=== PATIENT | male | born 1990 | race Caucasian/White ===

== ENCOUNTER 2018-02-19 20:41 | Emergency (ER) | payer SELFPAY ==
[~2018-02-19] VITALS: Ht 177.8 cm; Wt 59.0 kg
[2018-02-19 21:00] VITALS: BP 122/78
--- NOTE | 2018-02-19 21:20 | Emergency Room Report ---
History of Present Illness General Chief Complaint: General Complaint Source: EMS Present Illness HPI Is approximately 27-year-old male came in as a Rich Perales. He was acting aggressively and was combative security police. He was restrained and given Versed by EMS. Unable to any other history from him because he is now sedated. The distal fine a book about full of needles. Patient unable to give any other history. Is no trauma. Allergies: Coded Allergies: UNABLE TO ASSESS (Unverified , 02/19/18) Patient History Past Medical History: see triage record, old chart reviewed Past Surgical History: unable to obtain Pertinent Family History: unable to obtain Immunizations: other Reviewed Nursing Documentation: PMH: Agreed; PSxH: Agreed Nursing Documentation-PMH Past Medical History Deferred: Pt Cognitively Impaired Review of Systems All Other Systems: limited - Secondary to patient condition Physical Exam Vital Signs Date Time Temp Pulse Resp B/P (MAP) Pulse Ox O2 Delivery O2 Flow Rate FiO2 02/19/18 20:42 98.0 98 18 116/78 98 Room Air 98.1 Sp02 EP Interpretation: reviewed, normal General Appearance: well appearing, no apparent distress, thin, other - Sedated Head: normocephalic, atraumatic Eyes: bilateral eye PERRL, bilateral eye EOMI, bilateral eye other - Pupils 6 mm and reactive ENT: hearing grossly normal, normal pharynx Neck: full range of motion, supple, no meningismus Respiratory: chest non-tender, lungs clear, normal breath sounds Cardiovascular #1: regular rate, rhythm, no murmur Gastrointestinal: normal bowel sounds, non tender, no mass, no organomegaly, no bruit, non-distended Musculoskeletal: back normal, normal range of motion Neurologic: grossly normal Psychiatric: other - Screaming, agitated with sternal rub Skin: warm/dry Medical Decision Making Diagnostic Impression: Primary Impression: Polysubstance abuse ER Course Patient came in with altered mental status from polysubstance abuse. Drug screen positive for multiple drugs. He slept in the night. He is awake now. He cursing asking for food and blankets. Refuse to give his name. I will let him sleep. To the morning and will discharge. No criteria for 5150. He does not express suicidal thoughts or homicidal thought. This patient is a chronic risk of self injury due to poor impulse control, limited coping skills, and judgment intermittently impaired by intoxication. I believe that the available clinical evidence to suggest that these characteristics derived primarily from personality disorder and are likely very stable over time. Hospitalization would likely attenuate risk of self-harm only during detention period, without lasting risk reduction. Serious self-harm , while possible, would likely be inadvertent, and because of impulsivity, and foreseeable. For these reasons, I do not believe hospitalization would provide meaningful reduction in risk of self-harm. Last Vital Signs Date Time Temp Pulse Resp B/P (MAP) Pulse Ox O2 Delivery O2 Flow Rate FiO2 02/19/18 20:42 98.0 98 18 116/78 98 Room Air 98.1 Status: improved Disposition: HOME, SELF-CARE Condition: Stable Additional Instructions: Stop using drugs. Follow-up with your doctor in 7 days. Follow-up with rehabilitation. Return if worse. Kristopher White MD Feb 19, 2018 21:20
[2018-02-19 22:57] VITALS: BP 125/72
[2018-02-20 01:22] VITALS: BP 118/60
[2018-02-20 02:36] VITALS: BP 113/62
[2018-02-20 04:51] VITALS: BP 113/62
== END 2018-02-20 04:49 | disposition home or self-care (01) ==
LOC: EDBD 20:41 → EMR 21:23
DX: F19.10 Other psychoactive substance abuse, uncomplicated (principal)
CPT/HCPCS: 36415; 80307; 99283; G0480; 80329